=== PATIENT | female | born 1990 | race Caucasian/White ===

== ENCOUNTER 2020-05-15 04:31 | Observation (INO) ==
[2020-05-15] MEDS ORDERED: Ondansetron 4 MG/2 ML VIAL IVP ONE ×2 (04:38→07:00)
[2020-05-15] MEDS ORDERED: *HR* FentaNYL (PF) 100 MCG/2 ML VIAL IVP ONE ×2 (04:41→05:34)
[2020-05-15] MEDS ORDERED: Isovue-370 500 ML BOTTLE IVP ONE (04:42)
[2020-05-15] MEDS ORDERED: 0.9 % Sodium Chloride 1,000 ML IVC ONE ×2 (05:33→07:37)
[2020-05-15 06:16] LABS: Bacteria,Urine Few per hpf (None-Few); Bilirubin,Urine Negative (Negative); Blood,Urine Small (Negative); Clarity,Urine Turbid (Clear); Color,Urine Light-Yellow (Yellow); Glucose,Urine (UA) Normal (Normal); Ketones,Urine Trace mg/dL (Negative); Leukocyte Esterase,Urine Trace (Negative); Mucus,Urine Few per lpf (None-Few); Nitrite,Urine Negative (Negative); PH,Urine 5.5 pH Units (5.0-8.0); Protein,Urine Trace mg/dL (Neg-Trace); RBC,Urine 15-30 per hpf (0-3); Specific Gravity,Urine 1.023 (1.010-1.025); Squamous Epithelial Cell,Urine Many per hpf (None-Few); Urobilinogen,Urine Normal (Normal)
[2020-05-15 06:30] LABS: Alanine Aminotransferase 12 Units/L (7-52); Albumin 4.2 g/dL (3.5-5.7); Albumin/Globulin Ratio 2.1 (1.1-2.2); Alkaline Phosphatase 38 Units/L (34-104); Aspartate Amino Transferase 11 Units/L (13-39); BUN/Creatinine Ratio 24 (6-26); Bilirubin,Direct 0.1 mg/dL (0.0-0.2); Bilirubin,Indirect 0.2 mg/dL (0.0-1.0); Bilirubin,Total 0.3 mg/dL (0.3-1.0); Blood Urea Nitrogen 17 mg/dL (6-20); Carbon Dioxide 22 mEq/L (23-29); Chloride 108 mEq/L (98-107); Glucose 165 mg/dL (70-105); Lipase 26 Units/L (11-82); Osmolality,Calculated 299 (280-300); Potassium 3.2 mEq/L (3.5-5.1); Sodium 142 mEq/L (136-145); Total Protein 6.2 g/dL (6.4-8.9); eGFR For African Americans > 60 (> 60); eGFR For Non-African Americans > 60 (> 60)
[2020-05-15 06:31] LABS: Basophils % 0.5 %; Eosinophils % 0.6 %; Hematocrit 36.6 % (35.3-44.9); Hemoglobin 12.2 g/dL (11.5-15.4); Immature Granulocytes % 0.5 % (0-4); Lymphocytes # 2.1 K/mcL (0.6-4.6); Lymphocytes % 32.6 %; Mean Corpuscular HGB Conc 33.3 g/dL (31.6-35.5); Mean Corpuscular Hemoglobin 31.1 pg (28.0-33.3); Mean Corpuscular Volume 93.4 fL (83.0-100.0); Mean Platelet Volume 9.3 fL (9.4-12.4); Monocytes # 0.4 K/mcL (0.0-1.3); Monocytes % 6.5 %; Neutrophils # 3.8 K/mcL (1.6-8.9); Platelet Count 290 K/mcL (140-400); Red Blood Count 3.92 M/mcL (3.82-4.97); Red Cell Distribution Width 11.6 % (11.5-14.5); Segmented Neutrophils % 59.3 %; White Blood Count 6.3 K/mcL (4.3-11.1)
[2020-05-15] MEDS ORDERED: *HR* HYDROmorphone (PF) 1 MG/ML SYRINGE IVP ONE (07:00)
[2020-05-15] MEDS ORDERED: Potassium Citrate 10 MEQ TABLET.ER PO STA (07:00)
[2020-05-15] MEDS ORDERED: cefTRIAXone 1,000 MG in 0.9 % Sodium Chloride Mini Bag 100 ML IVPB ONE (07:38)
[2020-05-15] MEDS ORDERED: *HR* Promethazine 25 MG/ML VIAL IM PRN (08:29)
[2020-05-15] MEDS ORDERED: Naloxone 0.4 MG/ML INJ IVP PRN (08:29)
[2020-05-15] MEDS ORDERED: 0.9 % Sodium Chloride w KCl 20 MEQ/1,000 ML MLS IVC SCH (08:30)
[2020-05-15] MEDS ORDERED: *HR* HYDROmorphone (PF) 1 MG/ML SYRINGE IVP PRN (08:31)
[2020-05-15] MEDS ORDERED: Ketorolac 15 MG/ML VIAL IVP ONE (08:59)
[2020-05-15] MEDS ORDERED: Isovue-300 50ML VIAL ONE (11:52)
[2020-05-15] MEDS ORDERED: *HR* FentaNYL (PF) 100 MCG/2 ML VIAL ONE (11:58)
[2020-05-15] MEDS ORDERED: *HR* Midazolam HCl 2 MG/2 ML VIAL ONE (11:58)
[2020-05-15] MEDS ORDERED: Ketorolac 30 MG/ML VIAL ONE ×2 (11:58→13:08)
[2020-05-15] MEDS ORDERED: Ondansetron 4 MG/2 ML VIAL ONE (11:58)
[2020-05-15] MEDS ORDERED: *HR* Propofol 200 MG/20 ML VIAL IVP ONE (11:59)
[2020-05-15] MEDS ORDERED: Ondansetron 4 MG/2 ML VIAL IVP PRN (12:03)
[2020-05-15] MEDS ORDERED: *HR* OxyCODONE/APAP 5/325 TABLET PO PRN (12:03)
[2020-05-15] MEDS ORDERED: Ringers Solution, Lactated 1,000 ML IVC SCH (12:15)
[2020-05-15 15:45] VITALS: BP 112/76
[2020-05-16] MEDS ORDERED: cefTRIAXone 1,000 MG in Water for inj. (sterile) 10 ML IVP SCH (09:00)
[2020-05-20 14:19] LABS: Calculi Mass 2 mg
== END 2020-05-15 18:05 | disposition home or self-care (01) ==
LOC: 3ANU 04:31 → EMEROOARM 04:31 → 3ANU 10:12
PROVIDERS: ADMIT Internal Medicine; ATTEND Internal Medicine